=== PATIENT | female | born 1995 | race Two or more races ===

== ENCOUNTER 2019-07-23 11:25 | Observation (INO) | payer MEDICAID ==
[2019-07-23] MEDS ORDERED: PREN-96 PO (12:51)
== END 2019-07-23 13:30 | disposition home or self-care (01) | DRG 566 ==
LOC: LDRP 11:25
PROVIDERS: ADMIT Obstetrics & Gynecology; ATTEND Obstetrics & Gynecology
DX: O26.893 Other specified pregnancy related conditions, third trimester (principal); Z3A.35 35 weeks gestation of pregnancy
CPT/HCPCS: 59025; 76815; 81002; G0378

== ENCOUNTER 2019-07-26 12:00 | Observation (INO) | payer MEDICAID ==
[~2019-07-26] VITALS: Ht 144.8 cm; Wt 48.5 kg
[~2019-07-26 12:00] MED LIST: PREN-96 PO
== END 2019-07-26 14:55 | disposition home or self-care (01) | DRG 566 ==
LOC: LDRP 12:00
PROVIDERS: ADMIT Obstetrics & Gynecology; ATTEND Obstetrics & Gynecology
DX: O41.8X30 Other specified disorders of amniotic fluid and membranes, third trimester, not applicable or unspecified (principal); Z3A.36 36 weeks gestation of pregnancy
CPT/HCPCS: 59025; 76818; 81002; G0378